=== PATIENT | male | born 1960 | race Asian ===

== ENCOUNTER → 2017-08-10 | Outpatient (CLI) | payer OTHER ==
--- NOTE | 2017-08-10 14:37 | RADRPT ---
EXAM DATE/TIME: 08/10/2017 13:57 CORRECTION Corrected on: August 15, 2017; [place] COMPARISON: No previous studies available for comparison. INDICATIONS : Pain and swelling in left ankle for a month. MEDICAL HISTORY : None. SURGICAL HISTORY : None. ENCOUNTER: Initial ACUITY: 1 month PAIN SCORE: 2/10 LOCATION: Left Ankle FINDINGS: Three view exam was performed of the left ankle. Soft tissue swelling is identified along the latera l and anterior aspect of the ankle. Bony structures are intact. There is no evidence of fracture or dislocation. No significant arthropathy is noted. CONCLUSION: Soft tissue swelling with no evidence of acute fracture, dislocation or significant arthropathy. Roderick Shipley MD on August 10, 2017 at 14:35 Board Certified Radiologist. This report was verified electronically. Roderick Shipley MD on August 15, 2017 at 13:07 Board Certified Radiologist. This report was verified electronically.
== END ==
LOC: HRAD 13:44
DX: M25.572 Pain in left ankle and joints of left foot (principal); M25.472 Effusion, left ankle
CPT/HCPCS: 73610